=== PATIENT | female | born 1995 | race Caucasian/White ===

== ENCOUNTER 2017-10-26 19:40 | Outpatient (CLI) | payer SELFPAY ==
[~2017-10-26] VITALS: Ht 160 cm; Wt 86.2 kg
[2017-10-26 20:07] VITALS: Ht 160 cm; Wt 86.2 kg
[2017-10-26 20:08] VITALS: BP 105/58; PULSE 98; RESP 18
[2017-10-26] MEDS ORDERED: ACET500T98 PO (20:15)
[2017-10-26] MEDS ORDERED: PNV11TAB PO (20:15)
[2017-10-26] MEDS ORDERED: LACTATED RINGER'S 1,000 ML IV ONE (20:30)
[2017-10-26 21:01] LABS: BASOPHILS % 0.5 % (0.0-2.0); EOSINOPHILS # 0.3 10^3/ul (0.0-0.5); EOSINOPHILS % 3.5 % (0.0-7.0); HEMATOCRIT 35.3 % (37.0-47.0); HEMOGLOBIN 11.8 g/dl (12.0-16.0); LYMPHOCYTES # 1.3 10^3/ul (0.8-2.9); LYMPHOCYTES % 15.6 % (15.0-51.0); MEAN CORPUSCULAR HGB CONC 33.4 g/dl (32.0-37.0); MEAN CORPUSCULAR VOLUME 83.8 fl (82.0-101.0); MEAN PLATELET VOLUME 10.3 fl (7.4-10.4); MONOCYTE # 1.1 10^3/ul (0.3-0.9); MONOCYTES % 12.9 % (0.0-11.0); NEUTROPHIL # 5.6 10^3/ul (1.6-7.5); NEUTROPHILS % 65.3 % (39.0-77.0); PLATELET COUNT 224 10^3/UL (140-415); RED BLOOD COUNT 4.21 10^6/ul (4.20-5.40); RED CELL DISTRIBUTION WIDTH 12.9 % (11.5-14.5); WHITE BLOOD COUNT 8.6 10^3/ul (4.8-10.8)
[2017-10-26 21:08] LABS: ADD UMIC NO; UR ASCORBIC ACID NEGATIVE (NEGATIVE); UR BILIRUBIN (Dip) NEGATIVE (NEGATIVE); UR BLOOD (Dip) NEGATIVE (NEGATIVE); UR CLARITY CLEAR (CLEAR); UR COLOR YELLOW (YELLOW); UR GLUCOSE (Dip) NEGATIVE (NEGATIVE); UR KETONES (Dip) NEGATIVE (NEGATIVE); UR LEUKOCYTE ESTERASE (Dip) NEGATIVE Leu/ul (NEGATIVE); UR NITRITE (Dip) NEGATIVE (NEGATIVE); UR SPECIFIC GRAVITY (Dip) 1.021 (1.003-1.030); UR TOTAL PROTEIN (Dip) NEGATIVE (NEGATIVE); UR UROBILINOGEN (Dip) 2+ mg/dL (NEGATIVE)
[2017-10-26 21:22] LABS: ALBUMIN 3.4 g/dl (3.3-4.9); ALBUMIN/GLOBULIN RATIO 1.09; BILIRUBIN,INDIRECT 0.2 mg/dl (0-1.1); BILIRUBIN,TOTAL 0.2 mg/dl (0.2-1.3); CALCIUM 8.8 mg/dl (8.4-10.2); CREATININE 0.58 mg/dl (0.44-1.00); POTASSIUM 3.7 mmol/L (3.5-5.1); TOTAL PROTEIN 6.5 g/dl (6.1-8.1)
[2017-10-26] MEDS ORDERED: LACTATED RINGER'S 1,000 ML IV SCH (21:30)
--- NOTE | 2017-10-26 21:35 | PN ---
Triage Information Date/Time Reason for visit: Flulike symptoms Weeks of Gestation Patient is a 22-year-old 3 para 1 at 34 weeks and 3 days of gestation with estimated date of delivery December 04, 2017 She presents with chief complaint of flu like symptoms, congestion and reports of having fever at home OB history significant for 1, SAB 1 /Para Diabetes: none Hypertention: none Objective Vital Signs Date Time Temp Pulse Resp B/P Pulse Ox O2 Delivery O2 Flow Rate FiO2 10/26/17 20:08 98.9 98 18 105/58 97 Room Air Heart Rate: 140's Heart Rate Comments heart rate tracing category 1 Contractions: None Results/Medications Result Diagram: 10/26/17203910/26/172039 Results 24 hrs Laboratory Tests Test 10/26/17 14:45 10/26/17 20:40 Urine Color YELLOW Urine Clarity CLEAR Urine pH 6.0 Urine Specific [place] 1.021 Urine Ketones NEGATIVE Urine Nitrite NEGATIVE Urine Bilirubin NEGATIVE Urine Urobilinogen 2+ H Urine Leukocyte Esterase NEGATIVE Urine Hemoglobin NEGATIVE Urine Glucose NEGATIVE Urine Total Protein NEGATIVE White Blood Count 8.6 Red Blood Count 4.21 Hemoglobin 11.8 L Hematocrit 35.3 L Mean Corpuscular Volume 83.8 Mean Corpuscular Hemoglobin 28.0 L Mean Corpuscular Hemoglobin Concent 33.4 Red Cell Distribution Width 12.9 Platelet Count 224 Mean Platelet Volume 10.3 Neutrophils % 65.3 Lymphocytes % 15.6 Monocytes % 12.9 H Eosinophils % 3.5 Basophils % 0.5 Nucleated Red Blood Cells % 0.0 Neutrophils # 5.6 Lymphocytes # 1.3 Monocytes # 1.1 H Eosinophils # 0.3 Basophils # 0.0 Nucleated Red Blood Cells # 0.0 Sodium Level 136 Potassium Level 3.7 Chloride Level 103 Carbon Dioxide Level 27 Anion Gap 10 Blood Urea Nitrogen 6 L Creatinine 0.58 Glucose Level 81 Calcium Level 8.8 Total Bilirubin 0.2 Direct Bilirubin 0.00 Indirect Bilirubin 0.2 Aspartate Amino Transf (AST/SGOT) 52 H Alanine Aminotransferase (ALT/SGPT) 59 Alkaline Phosphatase 179 H Total Protein 6.5 Albumin 3.4 Globulin 3.10 Albumin/Globulin Ratio 1.09 Medications Current Medications Lactated Ringer's (Lr) 1,000 ml @ 125 mls/hr Q8H IV ; Start 10/26/17 at 21:30 Imaging Results PROCEDURE: Obstetrical ultrasound for biophysical profile CLINICAL INDICATION: Biophysical profile. . TECHNIQUE: Obstetrical ultrasound of the uterus for biophysical profile. Transabdominal views are obtained. COMPARISON: US 10/26/2017 FINDINGS: Single intrauterine gestation. Presentation: Cephalic. Placenta: Anterior. No evidence of placental abruption. No evidence of placenta previa. breathing movement = 2/2 tone = 2/2 motion = 2/2 REINA = 2/2 REINA = 13.3 cm heart rate: 150 beats per minute IMPRESSION: Single intrauterine gestation. Biophysical profile 06/30 RPTAT: AADD .Senthil Bay MD, Date Time Electronically viewed and signed by .Senthil Bay MD, on 10/26/2017 21:42 .B/ PROCEDURE: Obstetrical ultrasound. CLINICAL INDICATION: , evaluation. Pelvic pain. TECHNIQUE: Transabdominal sonographic images of the uterus obtained after first trimester, greater than 14 weeks gestation. Single intrauterine gestation present. COMPARISON: No prior studies are available for comparison. FINDINGS: Single intrauterine gestation. There is a cephalic presentation. Measurements were made in order to determine age. The results are as follows: BPD = 34 weeks 6 day(s) HC = 35 weeks 0 day(s) AC = 35 weeks 2 day(s) FL = 34 weeks 4 day(s) REINA = not measured. Heart rate = 150 beats per minute The placenta is anterior. There is no evidence for an abruption or placenta previa. Ovaries are not visualized. IMPRESSION: Single intrauterine gestation of approximately 35 weeks 0 days by ultrasound criteria. [place] estimated weight = 2561 g; 61 percentile for gestational age of 34 weeks 3 days. RPTAT: AADD .Senthil Bay MD, MD Date Time Electronically viewed and signed by .Senthil Bay MD, MD on 10/26/2017 21:38 .B/ CC: MALISSA EASON MD Disposition: Discharge Assessment/Plan Patient with flulike symptoms Labs and UA within normal limits OB ultrasound within normal limits Patient instructed to increase fluid intake and take Tylenol for cold over-the- counter kick counts were reviewed with the patient She was given information about community clinics that she should make a follow- up appointment for care within 2-3 days MALISSA EASON MD Oct 26, 2017 21:35
--- NOTE | 2017-10-26 21:39 | RADRPT ---
PROCEDURE: Obstetrical ultrasound. CLINICAL INDICATION: , evaluation. Pelvic pain. TECHNIQUE: Transabdominal sonographic images of the uterus obtained after first trimester , greater than 14 weeks gestation. Single intrauterine gestation present. COMPARISON: No prior studies are available for comparison. FINDINGS: Single intrauterine gestation. There is a cephalic presentation. Measurements were made in order to determine age. The results are as follows: BPD = 34 weeks 6 day(s) HC = 35 weeks 0 day(s) AC = 35 weeks 2 day(s) FL = 34 weeks 4 day(s) REINA = not measured. Heart rate = 150 beats per minute The placenta is anterior. There is no evidence for an abruption or placenta previa. Ovaries are not visualized. IMPRESSION: Single intrauterine gestation of approximately 35 weeks 0 days by ultrasound criteria. [place] estimated weight = 2561 g; 61 percentile for gestational age of 34 weeks 3 days. RPTAT: AADD .Senthil Bay MD, MD Date Time Electronically viewed and signed by .Senthil Bay MD, on 10/26/2017 21:38 .B/
--- NOTE | 2017-10-26 21:42 | RADRPT ---
PROCEDURE: Obstetrical ultrasound for biophysical profile CLINICAL INDICATION: Biophysical profile. . TECHNIQUE: Obstetrical ultrasound of the uterus for biophysical profile. Transabdominal views are obtained. COMPARISON: US 10/26/2017 FINDINGS: Single intrauterine gestation. Presentation: Cephalic. Placenta: Anterior. No evidence of placental abruption. No evidence of placenta previa. breathing movement = 2/2 tone = 2/2 motion = 2/2 REINA = 2/2 REINA = 13.3 cm heart rate: 150 beats per minute IMPRESSION: Single intrauterine gestation. Biophysical profile 06/30 RPTAT: AADD .Senthil Bay MD, MD Date Time Electronically viewed and signed by .Senthil Bay MD, on 10/26/2017 21:42 .B/
--- NOTE | 2017-10-27 00:05 | TRIAGE ---
OB Triage Datetime Report Generated by CPN: 10/27/2017 00:05 Datetime: 10/26/2017 22:33 Labor Evaluation Frequency: 0 Monitor Mode: External Resting Tone [place]: Relaxed Heart Rate FHR Baseline Rate: 140 Monitor Mode: External US Variability: Moderate 6-25 bpm Accelerations: 15X15 Decelerations: None Category: Category I Pain Assessment Pain Scale: 0 Pain Presence: None/Denies Pain Type: N/A Datetime: 10/26/2017 22:32 Stage of : OB Triage Datetime: 10/26/2017 22:03 Stage of : OB Triage Datetime: 10/26/2017 21:06 Stage of : OB Triage Datetime: 10/26/2017 21:00 Stage of : OB Triage Labor Evaluation Frequency: 0 Monitor Mode: External Resting Tone [place]: Relaxed Heart Rate FHR Baseline Rate: 145 Monitor Mode: External US Variability: Moderate 6-25 bpm Accelerations: 15X15 Decelerations: None Category: Category I Pain Assessment Pain Scale: 0 Pain Presence: None/Denies Pain Type: N/A Datetime: 10/26/2017 20:01 Assessment Type: Triage Maternal Assessment Level of Consciousness: Fully Conscious DTR's/Clonus: DTRs 2+; No Clonus Headache: Temporal; Bilateral; Frontal Blurred Vision: No Respiratory Effort: Unlabored Breath Sounds, Left: Clear and Equal Breath Sounds, Right: Clear and Equal Nausea/Vomiting: Denies RUQ Epigastric Pain: Denies Lower Extremities Edema: None Degree: None Upper Extremities Edema: None Degree: None Facial Edema: None Fall Risk Assessment History of Falling: (0) No Secondary Diagnosis: (0) No Ambulatory Aid: (0) Bedrest/Nurse Assist IV Therapy: (0) No Gait: (0) Normal/Bedrest/Immobile Mental Status: (0) Oriented to Own Ability Fall Score: 0 Fall Risk Score Definition: No Risk: No action required Datetime: 10/26/2017 19:56 Monitor Mode: External Contraction Comments: APPLIED Monitor Mode: External US Comments: APPLIED Datetime: 10/26/2017 19:55 Time of Arrival: 10/26/2017 19:32 EGA: 34.3 Arrived By: Wheelchair Arrived From: Home Movement: Present Contractions: Denies/Absent Rupture of Membranes: Denies Vaginal Bleeding: None Vaginal Discharge: Denies Recent Sexual Intercouse: Denies Abdominal Trauma: Not Applicable Time Provider Notified: 10/26/2017 19:52 Provider Notified: JENARO Initial Plan: VS, EFM, CBC, CMP, UA, BPP, EFW, IV HYDRATION Datetime: 10/26/2017 19:52 Stage of : OB Triage Datetime: 10/26/2017 19:36 Stage of : OB Triage
== END 2017-10-26 22:40 | disposition home or self-care (01) ==
LOC: OBT 19:40 → L-D 19:42 → OBT 22:40
PROVIDERS: ATTEND Obstetrics & Gynecology Gynecology
DX: O26.893 Other specified pregnancy related conditions, third trimester (principal); R50.9 Fever, unspecified; R10.2 Pelvic and perineal pain; Z3A.35 35 weeks gestation of pregnancy
CPT/HCPCS: 76815; 76818; 80053; 81003; 85025; J7120